=== PATIENT | female | born 1985 | race Caucasian/White ===

== ENCOUNTER 2019-07-27 20:27 | Inpatient (IN) | payer SELFPAY ==
[~2019-07-27] VITALS: Ht 162.5 cm; Wt 82.2 kg
[~2019-07-27 20:27] MED LIST: HYDR1TAB PO; KETO-22 PO; METR500T PO; NF-URO10; PROM25SU10 RC
[2019-07-27] MEDS ORDERED: NS IV 1000 ML 1,000 ML IV SCH ×2 (20:50→21:56)
[2019-07-27] MEDS ORDERED: ONDANSETRON 4 MG/2 ML (SDV) Z0FRAN IVP ONE (21:00)
[2019-07-27 21:10] LABS: BASOPHILS % (AUTO) 0 % (0-10); EOSINOPHILS % (AUTO) 0 % (0-10); HEMATOCRIT 37 % (35-52); HEMOGLOBIN 12.8 G/DL (11.5-16.0); LYMPHOCYTES # (AUTO) 1.3 X 10^3 (1.0-4.0); LYMPHOCYTES % (AUTO) 7 % (12-44); MEAN CORPUSCULAR HEMOGLOBIN 29 PG (25-34); MEAN CORPUSCULAR HGB CONC 35 G/DL (32-36); MEAN CORPUSCULAR VOLUME 82 FL (80-99); MEAN PLATELET VOLUME 9.8 FL (7.4-10.4); MONOCYTES # (AUTO) 1.7 X 10^3 (0.0-1.0); MONOCYTES % (AUTO) 9 % (0-12); NEUTROPHILS # (AUTO) 15.4 X 10^3 (1.8-7.8); NEUTROPHILS % (AUTO) 83 % (42-75); PLATELET COUNT 351 10^3/uL (130-400); RED CELL DISTRIBUTION WIDTH 13.3 % (10.0-14.5); WHITE BLOOD COUNT 18.5 10^3/uL (4.3-11.0)
[2019-07-27 21:17] LABS: CLARITY,URINE CLEAR; COLOR,URINE DARK YELLOW; GLUCOSE, URINE (UA) NEGATIVE (NEGATIVE); KETONES,URINE 3+ (NEGATIVE); LEUKOCYTE ESTERASE ,URINE NEGATIVE (NEGATIVE); NITRITE,URINE NEGATIVE (NEGATIVE); PROTEIN,URINE 2+ (NEGATIVE)
[2019-07-27 21:35] LABS: BILIRUBIN,URINE 2+ (NEGATIVE); WBC,URINE RARE /HPF
[2019-07-27 21:36] LABS: BACTERIA,URINE TRACE /HPF; GRANULAR CASTS,URINE RARE /LPF
--- NOTE | 2019-07-27 21:40 | ED Integumentary General ---
General Chief Complaint: Allergic Reaction Stated Complaint: HIVES Nursing Triage Note: Pt to room #9 via ED w/c by ED staff with c/o rash, fever, nausea, vomiting, diarrhea, joint discomfort, and headache. Pt reports to have been seen @ [facility] on 07/20/19 where she was diagnosed with strep throat. Pt reports symptoms continued and returned to [facility] on 07/24/19 where they adm IM PCN. Pt reports on 07/24/19 "pustule filled blisters" appeared to Lt hand. Pt reports rash in now generalized and has noticed increase in severity throughout this day. A&OX4. History of Present Illness Date Seen by Provider: Jul 27, 2019 Time Seen by Provider: 20:45 Initial Comments 34 year old female presents with intermittent fevers, rash, pharyngitis, my algias/arthralgias, and headache. She had some nausea, vomiting and diarrhea today. She moved here from [place] in late May and reports sore throats intermittently. On 07/20/19 she was Strep + and started on Z-pack at [facility]. There was no improvement and she was re-evaluated on 07/24/19 and given a Penicillin IM injection. Symptoms have progressed over the last 2 days to a rash. On chest, back, neck and UEs they are pustules with a pearly center that are slightly tender but non-pruritic. On left mid back, there appears to be a resolving EM, patient denies a tick bite over the last year. On LEs there are macular-papular rash, that is tender. Abdomen, palmar and plantar surfaces are spared. Her and daughter share a bed with her and do not have a rash or similar symptoms. Patient denies change in laundry products, skin care or diet. No history of UTIs or STIs. No vaginal discharge, painful intercourse or dysuria. No visual changes, neck stiffness, or muscle weakness. Timing/Duration: getting worse Severity: moderate Location: torso, extremities Possible Cause: no cause identified Associated Symptoms: fever; No flushing; headache, hives; No jaundice; malaise; No numbness, No paresthesia, No petechiae; rash, sore throat; No swelling/mass/lumps, No tingling Allergies and Home Medications Allergies Uncoded Allergies: PCN (Allergy, Mild, 10/9/08) Home Medications Hydrocodone Bit/Acetaminophen 1 Each Tablet, 1 EACH PO Q4HR PRN Prescribed by: REHANA PERRIN on 07/20/102020 Ketorolac Tromethamine 10 Mg Tablet, 10 MG PO QID PRN PAIN (GOT IV TORADOL) Prescribed by: REHANA PERRIN on 07/20/102020 Metronidazole 500 Mg Tab, 1 EACH PO TID, (Reported) Promethazine Hcl 25 Mg/Supp.rect Supp.rect, 1 SUPP RC QID Prescribed by: REHANA PERRIN on 07/20/102020 Patient Home Medication List Home Medication List Reviewed: Yes Review of Systems Review of Systems Constitutional: no symptoms reported, see HPI Respiratory: no symptoms reported, see HPI Skin: see HPI, change in color, lesions; No pruritus; rash All Other Systems Reviewed Negative Unless Noted: Yes Past Mrzkkwx-Drgbka-Eeasar Hx Past Med/Social Hx: Reviewed Nursing Past Med/Soc Hx Patient Social History Alcohol Use: Rarely Uses Recreational Drug Use: No Smoking Status: Never a Smoker 2nd Hand Smoke Exposure: No Recent Foreign Travel: No Contact w/Someone Who Travel: No Recent Infectious Disease Expo: No Recent Hopitalizations: Yes Past Medical History Surgeries: No Respiratory: No Cardiac: No Neurological: No Reproductive Disorders: No Sexually Transmitted Disease: No Gastrointestinal: No Musculoskeletal: No Endocrine: No Blood Disorders: No Physical Exam Vital Signs Vital Signs - First Documented 07/27/19 20:35 Temp 37.1 Pulse 127 Resp 18 B/P (MAP) 147/94 (111) Pulse Ox 99 O2 Delivery Room Air Capillary Refill : Less Than 3 Seconds General Appearance: WD/WN, no apparent distress HEENT: TMs normal, pharyngeal erythema, tonsillar exudate, other (tonsils 2+, no rash to pharynx or tongue) Neck: supple, normal inspection, lymphadenopathy (R), lymphadenopathy (L), other (No nuchal rigidity. ) Cardiovascular: normal peripheral pulses, regular rate, rhythm, no murmur Respiratory: chest non-tender, lungs clear Gastrointestinal: normal bowel sounds, non tender, soft Extremities: normal inspection, normal capillary refill, swelling (bilat knees trace swelling, with no erythema or warmth. No effusion to aspirate. Generalized arthralgias to bilat knees. Diffuse maculo-papular rash to bilat LE, not present on plantar surface. ) Neurologic/Psychiatric: no motor/sensory deficits, alert, normal mood/affect, oriented x 3 Skin: warm/dry, pallor, rash Skin Problem Location: neck, upper extremities, lower extremities, other (stomach is spared from rash) Skin Problem Character: macules, papules, vesicular (to UEs, chest, neck and back. ), other (resolving bulls eye rash to left mid back, non tender) Lymphatic: No axilla node tender (R), No axilla node tender (L), No inguinal node tender (R), No inguinal node tender (L) Progress/Results/Core Measures Results/Orders Lab Results Laboratory Tests Test 07/27/19 21:00 07/27/19 21:10 07/27/19 21:15 07/27/19 21:38 Range/Units White Blood Count 18.5 H 4.3-11.0 10^3/uL Red Blood Count 4.49 4.35-5.85 10^6/uL Hemoglobin 12.8 11.5-16.0 G/DL Hematocrit 37 35-52 % Mean Corpuscular Volume 82 80-99 FL Mean Corpuscular Hemoglobin 29 25-34 PG Mean Corpuscular Hemoglobin Concent 35 32-36 G/DL Red Cell Distribution Width 13.3 10.0-14.5 % Platelet Count 351 130-400 10^3/uL Mean Platelet Volume 9.8 7.4-10.4 FL Neutrophils (%) (Auto) 83 H 42-75 % Lymphocytes (%) (Auto) 7 L 12-44 % Monocytes (%) (Auto) 9 0-12 % Eosinophils (%) (Auto) 0 0-10 % Basophils (%) (Auto) 0 0-10 % Neutrophils # (Auto) 15.4 H 1.8-7.8 X 10^3 Lymphocytes # (Auto) 1.3 1.0-4.0 X 10^3 Monocytes # (Auto) 1.7 H 0.0-1.0 X 10^3 Eosinophils # (Auto) 0.0 0.0-0.3 10^3/uL Basophils # (Auto) 0.0 0.0-0.1 10^3/uL Neutrophils % (Manual) 79 % Lymphocytes % (Manual) 5 % Monocytes % (Manual) 7 % Eosinophils % (Manual) 0 % Basophils % (Manual) 0 % Band Neutrophils 9 % Toxic Granulation 1+ Blood Morphology Comment NORMAL Erythrocyte Sedimentation Rate 46 H 0-20 MM/HR Prothrombin Time 14.4 12.2-14.7 SEC INR Comment 1.1 0.8-1.4 Activated Partial Thromboplast Time 39 H 24-35 SEC Sodium Level 136 135-145 MMOL/L Potassium Level 3.5 L 3.6-5.0 MMOL/L Chloride Level 100 98-107 MMOL/L Carbon Dioxide Level 18 L 21-32 MMOL/L Anion Gap 18 H 5-14 MMOL/L Blood Urea Nitrogen 12 7-18 MG/DL Creatinine 0.98 0.60-1.30 MG/DL Estimat Glomerular Filtration Rate > 60 BUN/Creatinine Ratio 12 Glucose Level 96 70-105 MG/DL Lactic Acid Level 0.87 0.50-2.00 MMOL/L Calcium Level 10.5 H 8.5-10.1 MG/DL Corrected Calcium 10.6 H 8.5-10.1 MG/DL Total Bilirubin 0.7 0.1-1.0 MG/DL Aspartate Amino Transf (AST/SGOT) 48 H 5-34 U/L Alanine Aminotransferase (ALT/SGPT) 76 H 0-55 U/L Alkaline Phosphatase 106 40-136 U/L C-Reactive Protein High Sensitivity 23.42 H 0.00-0.50 MG/DL Total Protein 8.5 H 6.4-8.2 GM/DL Albumin 3.9 3.2-4.5 GM/DL Monoscreen NEGATIVE NEGATIVE Urine Color DARK YELLOW Urine Clarity CLEAR Urine pH 6.0 5-9 Urine Specific [place] >=1.030 1.016-1.022 Urine Protein 2+ H NEGATIVE Urine Glucose (UA) NEGATIVE NEGATIVE Urine Ketones 3+ H NEGATIVE Urine Nitrite NEGATIVE NEGATIVE Urine Bilirubin 2+ H NEGATIVE Urine Urobilinogen 1.0 < = 1.0 MG/DL Urine Leukocyte Esterase NEGATIVE NEGATIVE Urine RBC (Auto) 3+ H NEGATIVE Urine RBC 2-5 H /HPF Urine WBC RARE /HPF Urine Squamous Epithelial Cells 10-25 H /HPF Urine Crystals NONE /LPF Urine Bacteria TRACE /HPF Urine Casts PRESENT /LPF Urine Granular Casts RARE /LPF Urine Mucus MODERATE H /LPF Urine Culture Indicated NO Group A Streptococcus Screen NEGATIVE NEGATIVE Micro Results Microbiology 07/27/19 Influenza Types A,B Antigen (JANETTE) - Final, Complete My Orders Orders - ANIKA RODRIGUEZ DONAVAN Cbc With Automated Diff (07/27/19 20:50) Comprehensive Metabolic Panel (07/27/19 20:50) Hs C Reactive Protein (07/27/19 20:50) Ua Culture If Indicated (07/27/19 20:50) Influenza A And B Antigens (07/27/19 20:50) Ed Iv/Invasive Line Start (07/27/19 20:50) Ns Iv 1000 Ml (Sodium Chloride 0.9%) (07/27/19 20:50) Blood Culture (07/27/19 20:50) Lactic Acid Analyzer (07/27/19 20:50) Ondansetron Injection (Zofran Injectio (07/27/19 21:00) Manual Differential (07/27/19 21:00) Urine Bedside (07/27/19 21:21) Monotest (07/27/19 21:21) Rapid Strep A Screen (07/27/19 21:21) Tick Panel With Lyme Eia (07/27/19 21:21) Doxycycline Injection (Vibramycin Inject (07/27/19 21:45) Ed Iv/Invasive Line Start (07/27/19 21:56) Ns Iv 1000 Ml (Sodium Chloride 0.9%) (07/27/19 21:56) Erythrocyte Sedimentation Rate (07/27/19 21:56) Protime With Inr (07/27/19 22:12) Partial Thromboplastin Time (07/27/19 22:12) Medications Given in ED Current Medications Medications Dose Ordered Sig/Chaz Route Start Time Stop Time Status Last Admin Dose Admin Doxycycline Hyclate 100 mg/ Sodium Chloride 100 ml @ 100 mls/hr ONCE ONCE IV 07/27/19 21:45 07/27/19 22:44 DC 07/27/19 21:44 100 MLS/HR Ondansetron HCl 4 mg ONCE ONCE IVP 07/27/19 21:00 07/27/19 21:01 DC 07/27/19 21:17 4 MG Vital Signs/I&O 07/27/19 20:35 Temp 37.1 Pulse 127 Resp 18 B/P (MAP) 147/94 (111) Pulse Ox 99 O2 Delivery Room Air Blood Pressure Mean: 111 POS Progress Progress Note : Time: 20:45 Progress Note Pt seen and evaluated, will obtain labs, NS 1 L IV, Zofran 4 mg IV. 2114 Will give Doxy 100 mg IV. 2144 Nausea improved after Zofran. No change in rash. [address] Sarah, agreed to admit and treat prophylactically until all labs are back. Will continue Doxy 100 mg BID. Tramadol 50 mg orally for pain. [address] Reynolds, recommended STI testing. No other rec ommendations at this time. Patient has mild nausea, will give Phenergan 12.5 mg IV. 2299 patient stable, no change in symptoms. Nausea improved. Awaiting transfer to floor for admission. Departure Impression Primary Impression: Rash Additional Impressions: UTI (urinary tract infection) Qualified Codes: N30.01 - Acute cystitis with hematuria Myalgia Arthralgia Qualified Codes: M25.561 - Pain in right knee; M25.562 - Pain in left knee Dehydration Disposition: ADMITTED INPATIENT Condition: Stable Admissions Decision to Admit Reason: Admit from ER (General) Decision to Admit/Date: Jul 27, 2019 Time/Decision to Admit Time: 22:10 Departure-Patient Inst. Referrals: NO,LOCAL PHYSICIAN (PCP/Family) Primary Care Physician ANIKA RODRIGUEZ Jul 27, 2019 21:40 POS
[2019-07-27 21:44] LABS: ALANINE AMINOTRANSFERASE 76 U/L (0-55); ALBUMIN 3.9 GM/DL (3.2-4.5); ALKALINE PHOSPHATASE 106 U/L (40-136); BILIRUBIN,TOTAL 0.7 MG/DL (0.1-1.0); BUN/CREATININE RATIO 12; CALCIUM 10.5 MG/DL (8.5-10.1); CARBON DIOXIDE 18 MMOL/L (21-32); CHLORIDE 100 MMOL/L (98-107); CREATININE SERUM 0.98 MG/DL (0.60-1.30); GFR ESTIMATED > 60; GLUCOSE 96 MG/DL (70-105); POTASSIUM 3.5 MMOL/L (3.6-5.0); SODIUM 136 MMOL/L (135-145); TOTAL PROTEIN 8.5 GM/DL (6.4-8.2)
[2019-07-27] MEDS ORDERED: DOXYCYCLINE INJECTION 100 MG in NS (IVPB) 100 ML IV ONE (21:45)
[2019-07-27 21:55] LABS: BAND NEUTROPHILS 9 %; BASOPHILS % (MANUAL) 0 %; EOSINOPHILS % (MANUAL) 0 %; LYMPHOCYTES % (MANUAL) 5 %; MONOCYTES % (MANUAL) 7 %; NEUTROPHILS % (MANUAL) 79 %
[2019-07-27 21:56] LABS: RBC MORPH NORMAL; TOXIC GRANULATION/VACUOLAZATIO 1+
[2019-07-27 22:23] LABS: INR 1.1 (0.8-1.4); PROTHROMBIN TIME PATIENT 14.4 SEC (12.2-14.7)
[2019-07-27] MEDS ORDERED: PROMETHAZINE INJ 25 MG/ML (PHENERGAN) AMP IVP ONE (22:45)
[2019-07-28] VITALS (8 sets, daily range): BP systolic 107–134; BP diastolic 66–83
[2019-07-28] MEDS: KETOROLAC 30 MG/ML VIAL IV PRN ×3 (02:29→22:40)
[2019-07-28] MEDS: NS IV 1000 ML 1,000 ML IV SCH ×3 (02:29→18:12)
[2019-07-28 06:27] LABS: BASOPHILS % (AUTO) 0 % (0-10); EOSINOPHILS % (AUTO) 0 % (0-10); HEMATOCRIT 34 % (35-52); HEMOGLOBIN 11.5 G/DL (11.5-16.0); LYMPHOCYTES # (AUTO) 2.1 X 10^3 (1.0-4.0); LYMPHOCYTES % (AUTO) 15 % (12-44); MEAN CORPUSCULAR HEMOGLOBIN 28 PG (25-34); MEAN CORPUSCULAR HGB CONC 34 G/DL (32-36); MEAN CORPUSCULAR VOLUME 84 FL (80-99); MEAN PLATELET VOLUME 9.9 FL (7.4-10.4); MONOCYTES # (AUTO) 1.3 X 10^3 (0.0-1.0); MONOCYTES % (AUTO) 10 % (0-12); NEUTROPHILS # (AUTO) 10.1 X 10^3 (1.8-7.8); NEUTROPHILS % (AUTO) 75 % (42-75); PLATELET COUNT 310 10^3/uL (130-400); RED CELL DISTRIBUTION WIDTH 13.4 % (10.0-14.5); WHITE BLOOD COUNT 13.5 10^3/uL (4.3-11.0)
[2019-07-28 06:54] LABS: ALANINE AMINOTRANSFERASE 61 U/L (0-55); ALBUMIN 3.3 GM/DL (3.2-4.5); ALKALINE PHOSPHATASE 93 U/L (40-136); BILIRUBIN,TOTAL 0.4 MG/DL (0.1-1.0); BUN/CREATININE RATIO 11; CALCIUM 9.3 MG/DL (8.5-10.1); CARBON DIOXIDE 19 MMOL/L (21-32); CHLORIDE 106 MMOL/L (98-107); CREATININE SERUM 0.82 MG/DL (0.60-1.30); GFR ESTIMATED > 60; GLUCOSE 85 MG/DL (70-105); POTASSIUM 3.4 MMOL/L (3.6-5.0); SODIUM 136 MMOL/L (135-145); TOTAL PROTEIN 7.2 GM/DL (6.4-8.2)
[2019-07-28] MEDS: ONDANSETRON 4 MG/2 ML (SDV) Z0FRAN IV PRN ×2 (08:17→18:11)
--- NOTE | 2019-07-28 09:34 | NUR ---
PATIENT STATES SHE DOES NOT TAKE ANY MEDICATION. SHE DOES NOT EVEN LIKE TO TAKE OTC MEDS NEEDED.
[2019-07-28] MEDS: DOXYCYCLINE INJECTION 100 MG in NS (IVPB) 100 ML IV SCH ×2 (09:48→22:40)
[2019-07-28] MEDS: ACETAMINOPHEN 325 MG TABLET PO PRN (11:30)
--- NOTE | 2019-07-28 12:03 | NUR ---
CM DISCHARGE PLANNING: Referral received to visit about patient not being able to afford costs of hospital stay et medications at discharge. This was explored et then visited with patient. Davina reports that she has filled out financial assistance paper work with [facility]. We talked about that process et what she will need to do at discharge to obtain her medications that she dc's with. This would be to go to [facility] et f/u with her patient navigator, complete her financial assistance paperwork, possibly get medications through their repository, et additional medications through their pharmacy. We visited about her hospital stay here. She reports that our financial assistance person has been by et they filled out paperwork to begin that process as well. She needs to bring more information in et her is getting those things together. She denies any additional questions or concerns.
--- NOTE | 2019-07-28 12:16 | History & Physical ---
HPI History of Present Illness: Sore throat started around end of May when she moved back from [place]. Tried OTC meds. Started having increasing fatigue and fever and went to clinic on last Saturday and had positive strep even though she did also have mucous and phlegm so they thought it wouldn't be positive. She has had a lot of stomach problems with amoxicillin so she was given azithromycin, felt better the first day but then started feeling worse again and the day the meds ran out she had fever of up to 102. Went back in to clinic Saturday and was noted to be worse, given shot of penicillin. Had 2 bumps on her wrist when she got the shot, but then over the weekend started getting small bumps all over- upper body has tiny fluid filled bumps and ones on legs like raised bruise type lesions. She went to ER due to red spot about quarter size on her left knee and then at the end of work had spots all over her legs and that one had enlarged as well. The spots on her arms feel tense like they are stretched as far as they can be with fluid, are sensitive. The spots on legs throb when she stands up, especially the large ones on knees and calves. She also reports having lost 6-8 lbs over the week do to not wanting to eat and not wanting to move. She did have a severe headache at the end of last week as well. Headache is mostly better but if she moves it quickly it does hurt. She has a lot of pain in all her joints- neck, elbow, wrists, worst in knees and ankles. Has had nausea and vomiting, especially in the last week. She has no oral lesions. Source: patient Date seen by provider: Jul 28, 2019 Time Seen by Provider: 12:16 Attending Physician Stepan Sarah MD PCP No,Local Physician Consult Date of Admission Jul 27, 2019 at 22:15 Home Medications Home Medications Reviewed patient Home Medication Reconciliation performed by pharmacy medication reconciliations service technician and/or nursing. Patients Allergies have been reviewed. Allergies Uncoded Allergies: PCN (Allergy, Mild, 06/24/08) IEA-Xstnru-Xddlyg Hx Patient Social History Alcohol Use: Rarely Uses Recreational Drug Use: No Smoking Status: Never a Smoker 2nd Hand Smoke Exposure: No Recent Foreign Travel: No Contact w/other who traveled: No Recent Hopitalizations: Yes Recent Infectious Disease Expo: No Past Medical History PMHx: Kidney stones PSurgHx: Cholecystectomy Left ureteroscopies Family Medical History Significant Family History: CAD Under 55 Years Old (mother), Diabetes (grandmother) Review of Systems ([facility]) Constitutional: fever, malaise, weakness, weight loss EENTM: ear pain (left particularly), nose congestion, throat pain Respiratory: cough (improved over the week) Cardiovascular: No palpitations Gastrointestinal: abdominal pain (mild discomfort with antibiotics), diarrhea (earlier this week), nausea, vomiting Genitourinary: hesitancy Musculoskeletal: joint pain Skin: see HPI Psychiatric/Neurological: No Symptoms Reported Reviewed Test Results Reviewed Test Results Lab Laboratory Tests Test 07/27/19 21:00 07/27/19 21:10 07/27/19 21:15 07/27/19 21:38 Range/Units White Blood Count 18.5 H 4.3-11.0 10^3/uL Red Blood Count 4.49 4.35-5.85 10^6/uL Hemoglobin 12.8 11.5-16.0 G/DL Hematocrit 37 35-52 % Mean Corpuscular Volume 82 80-99 FL Mean Corpuscular Hemoglobin 29 25-34 PG Mean Corpuscular Hemoglobin Concent 35 32-36 G/DL Red Cell Distribution Width 13.3 10.0-14.5 % Platelet Count 351 130-400 10^3/uL Mean Platelet Volume 9.8 7.4-10.4 FL Neutrophils (%) (Auto) 83 H 42-75 % Lymphocytes (%) (Auto) 7 L 12-44 % Monocytes (%) (Auto) 9 0-12 % Eosinophils (%) (Auto) 0 0-10 % Basophils (%) (Auto) 0 0-10 % Neutrophils # (Auto) 15.4 H 1.8-7.8 X 10^3 Lymphocytes # (Auto) 1.3 1.0-4.0 X 10^3 Monocytes # (Auto) 1.7 H 0.0-1.0 X 10^3 Eosinophils # (Auto) 0.0 0.0-0.3 10^3/uL Basophils # (Auto) 0.0 0.0-0.1 10^3/uL Neutrophils % (Manual) 79 % Lymphocytes % (Manual) 5 % Monocytes % (Manual) 7 % Eosinophils % (Manual) 0 % Basophils % (Manual) 0 % Band Neutrophils 9 % Toxic Granulation 1+ Blood Morphology Comment NORMAL Erythrocyte Sedimentation Rate 46 H 0-20 MM/HR Prothrombin Time 14.4 12.2-14.7 SEC INR Comment 1.1 0.8-1.4 Activated Partial Thromboplast Time 39 H 24-35 SEC Sodium Level 136 135-145 MMOL/L Potassium Level 3.5 L 3.6-5.0 MMOL/L Chloride Level 100 98-107 MMOL/L Carbon Dioxide Level 18 L 21-32 MMOL/L Anion Gap 18 H 5-14 MMOL/L Blood Urea Nitrogen 12 7-18 MG/DL Creatinine 0.98 0.60-1.30 MG/DL Estimat Glomerular Filtration Rate > 60 BUN/Creatinine Ratio 12 Glucose Level 96 70-105 MG/DL Lactic Acid Level 0.87 0.50-2.00 MMOL/L Calcium Level 10.5 H 8.5-10.1 MG/DL Corrected Calcium 10.6 H 8.5-10.1 MG/DL Total Bilirubin 0.7 0.1-1.0 MG/DL Aspartate Amino Transf (AST/SGOT) 48 H 5-34 U/L Alanine Aminotransferase (ALT/SGPT) 76 H 0-55 U/L Alkaline Phosphatase 106 40-136 U/L C-Reactive Protein High Sensitivity 23.42 H 0.00-0.50 MG/DL Total Protein 8.5 H 6.4-8.2 GM/DL Albumin 3.9 3.2-4.5 GM/DL Monoscreen NEGATIVE NEGATIVE Urine Color DARK YELLOW Urine Clarity CLEAR Urine pH 6.0 5-9 Urine Specific [place] >=1.030 1.016-1.022 Urine Protein 2+ H NEGATIVE Urine Glucose (UA) NEGATIVE NEGATIVE Urine Ketones 3+ H NEGATIVE Urine Nitrite NEGATIVE NEGATIVE Urine Bilirubin 2+ H NEGATIVE Urine Urobilinogen 1.0 < = 1.0 MG/DL Urine Leukocyte Esterase NEGATIVE NEGATIVE Urine RBC (Auto) 3+ H NEGATIVE Urine RBC 2-5 H /HPF Urine WBC RARE /HPF Urine Squamous Epithelial Cells 10-25 H /HPF Urine Crystals NONE /LPF Urine Bacteria TRACE /HPF Urine Casts PRESENT /LPF Urine Granular Casts RARE /LPF Urine Mucus MODERATE H /LPF Urine Culture Indicated NO Group A Streptococcus Screen NEGATIVE NEGATIVE Test 07/28/19 06:10 Range/Units White Blood Count 13.5 H 4.3-11.0 10^3/uL Red Blood Count 4.06 L 4.35-5.85 10^6/uL Hemoglobin 11.5 11.5-16.0 G/DL Hematocrit 34 L 35-52 % Mean Corpuscular Volume 84 80-99 FL Mean Corpuscular Hemoglobin 28 25-34 PG Mean Corpuscular Hemoglobin Concent 34 32-36 G/DL Red Cell Distribution Width 13.4 10.0-14.5 % Platelet Count 310 130-400 10^3/uL Mean Platelet Volume 9.9 7.4-10.4 FL Neutrophils (%) (Auto) 75 42-75 % Lymphocytes (%) (Auto) 15 12-44 % Monocytes (%) (Auto) 10 0-12 % Eosinophils (%) (Auto) 0 0-10 % Basophils (%) (Auto) 0 0-10 % Neutrophils # (Auto) 10.1 H 1.8-7.8 X 10^3 Lymphocytes # (Auto) 2.1 1.0-4.0 X 10^3 Monocytes # (Auto) 1.3 H 0.0-1.0 X 10^3 Eosinophils # (Auto) 0.0 0.0-0.3 10^3/uL Basophils # (Auto) 0.0 0.0-0.1 10^3/uL Sodium Level 136 135-145 MMOL/L Potassium Level 3.4 L 3.6-5.0 MMOL/L Chloride Level 106 98-107 MMOL/L Carbon Dioxide Level 19 L 21-32 MMOL/L Anion Gap 11 5-14 MMOL/L Blood Urea Nitrogen 9 7-18 MG/DL Creatinine 0.82 0.60-1.30 MG/DL Estimat Glomerular Filtration Rate > 60 BUN/Creatinine Ratio 11 Glucose Level 85 70-105 MG/DL Calcium Level 9.3 8.5-10.1 MG/DL Corrected Calcium 9.9 8.5-10.1 MG/DL Total Bilirubin 0.4 0.1-1.0 MG/DL Aspartate Amino Transf (AST/SGOT) 37 H 5-34 U/L Alanine Aminotransferase (ALT/SGPT) 61 H 0-55 U/L Alkaline Phosphatase 93 40-136 U/L Total Protein 7.2 6.4-8.2 GM/DL Albumin 3.3 3.2-4.5 GM/DL Physical Exam-([facility]) Physical Exam Vital Signs VS - Last 72 Hours, by Label POS 07/27/19 07/28/19 07/28/19 07/28/19 20:35 00:05 00:10 00:15 Temp 37.1 36.9 38.2 Pulse 127 112 109 Resp 18 18 20 B/P (MAP) 147/94 (111) 133/85 (111) 107/68 Pulse Ox 99 99 98 99 O2 Delivery Room Air Room Air Room Air Room Air 07/28/19 07/28/19 07/28/19 07/28/19 04:20 08:00 08:01 11:21 Temp 37.7 37.7 38.7 Pulse 101 104 104 Resp 18 20 18 B/P (MAP) 113/66 (82) 128/83 (98) 115/70 (85) Pulse Ox 97 98 98 O2 Delivery Room Air Room Air Room Air Room Air 07/28/19 11:30 Temp 38.7 Capillary Refill : Less Than 3 Seconds General Appearance: WD/WN, no apparent distress Respiratory: lungs clear, normal breath sounds Cardiovascular: no murmur, tachycardia Gastrointestinal: normal bowel sounds, non tender, soft, no organomegaly Extremities: no pedal edema Neurologic/Psychiatric: alert, normal mood/affect Skin: other (diffuse erythematous nodular lesions on legs from 1-5 cm in diameter, few with yellowish pustular area of 2-3 mm on top, erythematous based lesions on arms with larger pustular tops taking up most of the lesions which are about 1-2 cm in diameter) Assessment/Plan Assessment/Plan Admission Status: Observation (1) Rash Status: Acute Assessment & Plan: Uncertain etiology, but suspect possible Sweet Syndrome versus Erythema nodosum. Will check CXR and amylase/lipase to look for sarcoid and panniculitis. Likely will need skin biopsy tomorrow. Tick panel pending, urine GC/chlamydia pending. Strep, mono and flu negative, but she did have posi tive strep last week in clinic and strep could be trigger for Sweet syndrome or EN. Continue doxy for now given improved leukocytosis. (2) Hematuria Status: Acute Assessment & Plan: Without clear evidence of infection, monitor and may need to consider CT abdomen if persistent. (3) Proteinuria Status: Acute Assessment & Plan: Renal function okay, suspect may be related to dehydration versus underlying pathology that is causing rash. (4) Myalgia Status: Acute (5) Arthralgia Status: Acute Qualifiers: Qualified Codes: M25.561 - Pain in right knee; M25.562 - Pain in left knee (6) Fever Status: Acute (7) Leukocytosis Status: Acute (8) Elevated liver enzymes Status: Acute Assessment & Plan: Improving, suspect related to underlying condition, whether infectious or autoimmune. Monitor. (9) DVT prophylaxis Status: Acute Assessment & Plan: Enoxaparin Clinical Quality Measures DVT/VTE Risk/Contraindication: Risk Factor Score Per Nursin RFS Level Per Nursing on Admit: 2=Moderate STEPAN SARAH MD Jul 28, 2019 12:16 POS
--- NOTE | 2019-07-28 14:37 | NUR ---
Initial visit by Phone Specialistglen Arvizu: engaged is rapport building and introduced Spiritual Care services. The pt is Delio.
[2019-07-28] MEDS: ENOXAPARIN 40 MG/0.4 ML (LOVENOX) SYR SC SCH (16:29)
[2019-07-28 16:52] LABS: AMYLASE 52 U/L (25-125); LIPASE 13 U/L (8-78)
--- NOTE | 2019-07-28 18:47 | Diagnostic Imaging Report ---
INDICATION: Fever and chills. TIME OF EXAM: 6:45 PM FINDINGS: The heart size is normal. The pulmonary vascularity is unremarkable. The lungs are clear. No infiltrate, effusion or pneumothorax is detected. IMPRESSION: No acute cardiopulmonary process is detected. Dictated by: Dictated on workstation # [id number]
[2019-07-28] MEDS: diphenhydrAMINE 25 MG TAB (BENADRYL) PO PRN (20:04)
[2019-07-29 03:45] VITALS: BP 108/67
[2019-07-29] MEDS: NS IV 1000 ML 1,000 ML IV SCH ×3 (04:26→21:40)
[2019-07-29] MEDS: diphenhydrAMINE 25 MG TAB (BENADRYL) PO PRN (05:25)
[2019-07-29] MEDS: ACETAMINOPHEN 325 MG TABLET PO PRN ×2 (05:25→16:32)
--- NOTE | 2019-07-29 05:26 | NUR ---
pt requesting Tylenol for headache & Benadryl for itching-prn medications given
[2019-07-29 06:03] LABS: BASOPHILS % (AUTO) 0 % (0-10); EOSINOPHILS % (AUTO) 0 % (0-10); HEMATOCRIT 35 % (35-52); HEMOGLOBIN 11.9 G/DL (11.5-16.0); LYMPHOCYTES # (AUTO) 1.9 X 10^3 (1.0-4.0); LYMPHOCYTES % (AUTO) 15 % (12-44); MEAN CORPUSCULAR HEMOGLOBIN 29 PG (25-34); MEAN CORPUSCULAR HGB CONC 34 G/DL (32-36); MEAN CORPUSCULAR VOLUME 84 FL (80-99); MEAN PLATELET VOLUME 10.9 FL (7.4-10.4); MONOCYTES # (AUTO) 1.1 X 10^3 (0.0-1.0); MONOCYTES % (AUTO) 8 % (0-12); NEUTROPHILS # (AUTO) 9.5 X 10^3 (1.8-7.8); NEUTROPHILS % (AUTO) 76 % (42-75); PLATELET COUNT 269 10^3/uL (130-400); RED CELL DISTRIBUTION WIDTH 13.5 % (10.0-14.5); WHITE BLOOD COUNT 12.5 10^3/uL (4.3-11.0)
[2019-07-29 06:27] LABS: ALANINE AMINOTRANSFERASE 59 U/L (0-55); ALBUMIN 3.2 GM/DL (3.2-4.5); ALKALINE PHOSPHATASE 92 U/L (40-136); BILIRUBIN,TOTAL 0.4 MG/DL (0.1-1.0); BUN/CREATININE RATIO 7; CALCIUM 9.4 MG/DL (8.5-10.1); CARBON DIOXIDE 18 MMOL/L (21-32); CHLORIDE 106 MMOL/L (98-107); CREATININE SERUM 0.73 MG/DL (0.60-1.30); GFR ESTIMATED > 60; GLUCOSE 75 MG/DL (70-105); POTASSIUM 3.6 MMOL/L (3.6-5.0); SODIUM 137 MMOL/L (135-145); TOTAL PROTEIN 7.2 GM/DL (6.4-8.2)
[2019-07-29 08:00] VITALS: BP 119/75
[2019-07-29] MEDS: KETOROLAC 30 MG/ML VIAL IV PRN ×2 (10:39→20:06)
[2019-07-29] MEDS: DOXYCYCLINE INJECTION 100 MG in NS (IVPB) 100 ML IV SCH ×2 (10:39→21:38)
[2019-07-29] MEDS ORDERED: LIDOCAINE/EPI 1%-1:100,000 (XYLOCAINE) 20ML INJ NR (10:45)
[2019-07-29] MEDS ORDERED: SILVER NITRATE APPLICATOR 1 PKT TP NR (10:45)
[2019-07-29] MEDS ORDERED: CHLORASEPTIC SPRAY 177 ML LIQUID MC PRN (11:15)
--- NOTE | 2019-07-29 11:34 | Procedure/Intervention Note ---
Procedure Note Preoperative Date of Service: Jul 29, 2019 Time of Procedure: 11:15 Vital Signs Date Time Temp Pulse Resp B/P (MAP) Pulse Ox O2 Delivery O2 Flow Rate FiO2 07/29/19 08:00 37.0 97 18 119/75 (90) 97 Room Air Indication Skin lesions of uncertain etiology Risk/Time Out Risk and benefits explained to patient or legal guardian, verbal consent given. Time out performed, verified correct patient, correct procedure, correct site, and consent documented. Technique 4 mm punch biopsy Prep/Sedation Prepartation: Alcohol Sedation: Subcutaneous 1% lidocaine with epinephrine, 4 mls Procedure-General Skin of left lower leg was cleansed over sales representative graphic art lesion with alcohol and area infiltrated with 1% lidocaine with epinephrine, 4 mls total. After adequate anesthesia, 4 mm punch biopsy with forceps and tissue scissors used to remove sales representative graphic art section. Hemostasis achieved with pressure and pressure dressing placed. Sample sent for pathology. Estimated Blood Loss Bleeding: Minimal Less than 1 mL: Yes Complications None STEPAN ROBERTO MD Jul 29, 2019 11:34 POS
--- NOTE | 2019-07-29 11:41 | Progress Note ---
Subjective Subjective/Events-last exam Febrile to over 39. Has severe sore throat still and feeling very fatigued. Focused Exam Lactate Level 07/27/19 21:00: Lactic Acid Level 0.87 Objective Exam Last Set of Vital Signs Vital Signs Date Time Temp Pulse Resp B/P (MAP) Pulse Ox O2 Delivery O2 Flow Rate FiO2 07/29/19 08:00 37.0 97 18 119/75 (90) 97 Room Air Capillary Refill : Less Than 3 Seconds I&O Intake and Output 07/29/19 00:00 Intake Total 4915 ml Balance 4915 ml Intake Oral 2715 ml IV Total 2200 ml # Voids 7 Daily Weight Change Yes, 2-13 lbs Yes, 2-13 lbs General: Alert, No Acute Distress Lungs: Clear to Auscultation, Normal Air Movement Heart: Regular Rate, No Murmurs Abdomen: Normal Bowel Sounds, Soft Skin: Other (erythematous nodules over legs and arms and a few small on face some with vesicular top, dry cracking lips) Neuro: Normal Speech Results/Procedures Lab Laboratory Tests 07/29/19 05:24: White Blood Count 12.5H, Red Blood Count 4.15L, Hemoglobin 11.9, Hematocrit 35, Mean Corpuscular Volume 84, Mean Corpuscular Hemoglobin 29, Mean Corpuscular Hemoglobin Concent 34, Red Cell Distribution Width 13.5, Platelet Count 269, Mean Platelet Volume 10.9H, Neutrophils (%) (Auto) 76H, Lymphocytes (%) (Auto) 15, Monocytes (%) (Auto) 8, Eosinophils (%) (Auto) 0, Basophils (%) (Auto) 0, Neutrophils # (Auto) 9.5H, Lymphocytes # (Auto) 1.9, Monocytes # (Auto) 1.1H, Eosinophils # (Auto) 0.0, Basophils # (Auto) 0.0, Sodium Level 137, Potassium Level 3.6, Chloride Level 106, Carbon Dioxide Level 18L, Anion Gap 13, Blood Urea Nitrogen 5L, Creatinine 0.73, Estimat Glomerular Filtration Rate > 60, BUN/Creatinine Ratio 7, Glucose Level 75, Calcium Level 9.4, Corrected Calcium 10.0, Total Bilirubin 0.4, Aspartate Amino Transf (AST/SGOT) 35H, Alanine Aminotransferase (ALT/SGPT) 59H, Alkaline Phosphatase 92, Total Protein 7.2, Albumin 3.2 Microbiology 07/27/19 Blood Culture - Preliminary, Resulted No growth 07/27/19 Throat Culture - Final, Complete No Beta Strep isolated Radiology CXR 07/28: normal Assessment/Plan Assessment/Plan (1) Rash Status: Acute Assessment & Plan: Uncertain etiology, but suspect possible Sweet Syndrome versus Erythema nodosum. Will check CXR and amylase/lipase to look for sarcoid and panniculitis. Likely will need skin biopsy tomorrow. Tick panel pending, urine GC/chlamydia pending. Strep, mono and flu negative, but she did have positive strep last week in clinic and strep could be trigger for Sweet syndrome or EN. Continue doxy for now given improved leukocytosis. 07/29 remains febrile, CXR okay, amylase/lipase normal. Syphilis neg, Lyme neg, Tularemia neg. GC/chlamydia, HIV, Hep panel, RMSF pending. 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 Will trial predisone to eval for benefit and also if response noted, will meet all 4 minor criteria. (2) Hematuria Status: Acute Assessment & Plan: Without clear evidence of infection, monitor and may need to consider CT abdomen if persistent. (3) Proteinuria Status: Acute Assessment & Plan: Renal function okay, suspect may be related to dehydration versus underlying pathology that is causing rash. (4) Myalgia Status: Acute (5) Arthralgia Status: Acute Qualifiers: Qualified Codes: M25.561 - Pain in right knee; M25.562 - Pain in left knee (6) Fever Status: Acute (7) Leukocytosis Status: Acute (8) Elevated liver enzymes Status: Acute Assessment & Plan: Improving, suspect related to underlying condition, whether infectious or autoimmune. Monitor. (9) DVT prophylaxis Status: Acute Assessment & Plan: Enoxaparin Clinical Quality Measures DVT/VTE Risk/Contraindication: Risk Factor Score Per Nursin RFS Level Per Nursing on Admit: 2=Moderate STEPAN ROBERTO MD Jul 29, 2019 11:41 POS
[2019-07-29 12:00] VITALS: BP 120/69
[2019-07-29 15:48] VITALS: BP 136/81
[2019-07-29] MEDS: ENOXAPARIN 40 MG/0.4 ML (LOVENOX) SYR SC SCH (16:32)
[2019-07-29 19:43] VITALS: BP 122/80
[2019-07-29 22:35] LABS: HEPATITIS C ANTIBODY C Non-Reactive (Non-Reactive)
[2019-07-29 23:56] VITALS: BP 125/79
[2019-07-30] MEDS: diphenhydrAMINE 25 MG TAB (BENADRYL) PO PRN ×2 (01:34→21:56)
[2019-07-30] MEDS: ONDANSETRON 4 MG/2 ML (SDV) Z0FRAN IV PRN ×2 (01:38→14:00)
[2019-07-30 03:15] VITALS: BP 126/72
[2019-07-30 06:43] LABS: BASOPHILS % (AUTO) 0 % (0-10); EOSINOPHILS # (AUTO) 0.1 10^3/uL (0.0-0.3); EOSINOPHILS % (AUTO) 0 % (0-10); HEMATOCRIT 32 % (35-52); HEMOGLOBIN 10.9 G/DL (11.5-16.0); LYMPHOCYTES # (AUTO) 1.7 X 10^3 (1.0-4.0); LYMPHOCYTES % (AUTO) 14 % (12-44); MEAN CORPUSCULAR HEMOGLOBIN 29 PG (25-34); MEAN CORPUSCULAR HGB CONC 34 G/DL (32-36); MEAN CORPUSCULAR VOLUME 83 FL (80-99); MEAN PLATELET VOLUME 10.1 FL (7.4-10.4); MONOCYTES # (AUTO) 0.9 X 10^3 (0.0-1.0); MONOCYTES % (AUTO) 7 % (0-12); NEUTROPHILS # (AUTO) 9.7 X 10^3 (1.8-7.8); NEUTROPHILS % (AUTO) 78 % (42-75); PLATELET COUNT 343 10^3/uL (130-400); RED CELL DISTRIBUTION WIDTH 13.8 % (10.0-14.5); WHITE BLOOD COUNT 12.3 10^3/uL (4.3-11.0)
[2019-07-30] MEDS: NS IV 1000 ML 1,000 ML IV SCH ×3 (06:52→15:18)
[2019-07-30] MEDS: KETOROLAC 30 MG/ML VIAL IV PRN ×2 (06:54→14:02)
[2019-07-30 07:04] LABS: ALANINE AMINOTRANSFERASE 42 U/L (0-55); ALBUMIN 2.9 GM/DL (3.2-4.5); ALKALINE PHOSPHATASE 77 U/L (40-136); BILIRUBIN,TOTAL 0.3 MG/DL (0.1-1.0); BUN/CREATININE RATIO 6; CARBON DIOXIDE 18 MMOL/L (21-32); CHLORIDE 106 MMOL/L (98-107); GFR ESTIMATED > 60; GLUCOSE 81 MG/DL (70-105); POTASSIUM 3.3 MMOL/L (3.6-5.0); SODIUM 137 MMOL/L (135-145); TOTAL PROTEIN 6.5 GM/DL (6.4-8.2)
[2019-07-30 07:45] VITALS: BP 129/86
[2019-07-30] MEDS ORDERED: KCL 20 MEQ TAB (K-DUR) PO NR (08:30)
[2019-07-30] MEDS: DOXYCYCLINE INJECTION 100 MG in NS (IVPB) 100 ML IV SCH ×2 (08:41→21:56)
[2019-07-30 11:25] VITALS: BP 115/76
[2019-07-30] MEDS: predniSONE 20 MG TAB PO SCH (11:56)
[2019-07-30] MEDS: ACETAMINOPHEN 325 MG TABLET PO PRN (14:01)
--- NOTE | 2019-07-30 15:08 | NUR ---
"RD ASSESSMENT PMHx: kidney stones PT INTERACTION: Pt was semi-awake and pleasant during nutrition assessment. Pt states current appetite is pretty poor and has been since admission. Note pt avg PO intake of 58% x2d, per chart review. Pt states following a regular diet at home, and currently has some issues with chewing and swallowing food. She attributes this to her recent bout of strep causing difficulty to swallow food. Pt states some recent episodes of nausea and vomiting since admission. Note no episodes of emesis have been reported, per chart review. Pt states no recent issues with c/d at this time. Note last BM was 07/29 and pt not currently on bowel regimen at this time, per chart review. Pt states recent 6-8# wt x1w, d/t poor PO intake. Note unable to determine recent wt hx, per chart review. ABNORMAL NUTRITION-RELATED LAB VALUES: K 3.1 (L); BUN 4 (L); alb 2.9 (L) Est. kcal needs: 6526-3237 kcal (15-20 kcal/kg) Est. Pro needs: 66-82 g Pro (0.8-1.0 g Pro/kg) PES STATEMENT: Inadequate oral intake (NI-2.1) related to nausea | vomiting | loss of appetite as evidenced by pt interview | avg PO intake 58% x2d INTERVENTION: Continue with current diet order of Regular diet. Pt may benefit from nutrition supplementation if PO intake declines. MONITOR/EVALUATE: PO Intake; Plan of Care; Hydration Status; Weight Status; Lab Values Jonathan Sweeney, MS, RD, LD"
[2019-07-30] MEDS: ENOXAPARIN 40 MG/0.4 ML (LOVENOX) SYR SC SCH (15:17)
[2019-07-30 16:13] VITALS: BP 131/71
--- NOTE | 2019-07-30 17:43 | Progress Note ---
Subjective Subjective/Events-last exam Seen at 1100 am. Afebrile last 24 hours, but continues to feel quite poorly, is not taking a lot of oral due to sore throat and is having diffuse pain in her joints. Has new spots on her face that she is worried will scar. Focused Exam Lactate Level 07/27/19 21:00: Lactic Acid Level 0.87 Objective Exam Last Set of Vital Signs Vital Signs Date Time Temp Pulse Resp B/P (MAP) Pulse Ox O2 Delivery O2 Flow Rate FiO2 07/30/19 16:13 36.0 95 16 131/71 (91) 98 Room Air Capillary Refill : Less Than 3 Seconds I&O Intake and Output 07/30/19 00:00 Intake Total 2400 ml Balance 2400 ml Intake Oral 1400 ml IV Total 1000 ml # Voids 10 # Bowel Movements 1 General: Alert, Mild Distress (appears upset) Lungs: Clear to Auscultation, Normal Air Movement Heart: Regular Rate, No Murmurs Abdomen: Normal Bowel Sounds, Soft Skin: Other (diffuse erythematous nodules on legs and arms, some with vesicular type top, few small erythematous papules on cheeks and near lips) Neuro: Normal Speech Psych/Mental Status: Other (mood sad) Results/Procedures Lab Laboratory Tests 07/30/19 06:11: White Blood Count 12.3H, Red Blood Count 3.82L, Hemoglobin 10.9L, Hematocrit 32L , Mean Corpuscular Volume 83, Mean Corpuscular Hemoglobin 29, Mean Corpuscular Hemoglobin Concent 34, Red Cell Distribution Width 13.8, Platelet Count 343, Mean Platelet Volume 10.1, Neutrophils (%) (Auto) 78H, Lymphocytes (%) (Auto) 14, Monocytes (%) (Auto) 7, Eosinophils (%) (Auto) 0, Basophils (%) (Auto) 0, Neutrophils # (Auto) 9.7H, Lymphocytes # (Auto) 1.7, Monocytes # (Auto) 0.9, Eosinophils # (Auto) 0.1, Basophils # (Auto) 0.0, Sodium Level 137, Potassium Level 3.3L, Chloride Level 106, Carbon Dioxide Level 18L, Anion Gap 13, Blood Urea Nitrogen 4L, Creatinine 0.70, Estimat Glomerular Filtration Rate > 60, BUN/Creatinine Ratio 6, Glucose Level 81, Calcium Level 9.0, Corrected Calcium 9.9, Total Bilirubin 0.3, Aspartate Amino Transf (AST/SGOT) 19, Alanine Aminotransferase (ALT/SGPT) 42, Alkaline Phosphatase 77, Total Protein 6.5, Albumin 2.9L Microbiology 07/27/19 Blood Culture - Preliminary, Resulted No growth 07/27/19 Throat Culture - Final, Complete No Beta Strep isolated Radiology CXR 07/28: normal Assessment/Plan Assessment/Plan (1) Rash Status: Acute Assessment & Plan: Uncertain etiology, but suspect possible Sweet Syndrome versus Erythema nodosum. Will check CXR and amylase/lipase to look for sarcoid and panniculitis. Likely will need skin biopsy tomorrow. Tick panel pending, urine GC/chlamydia pending. Strep, mono and flu negative, but she did have positive strep last week in clinic and strep could be trigger for Sweet syndrome or EN. Continue doxy for now given improved leukocytosis. -07/29 remains febrile, CXR okay, amylase/lipase normal. Syphilis neg, Lyme neg, Tularemia neg. GC/chlamydia, HIV, Hep panel, RMSF pending. 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 Will trial predisone to eval for benefit and also if response noted, will meet all 4 minor criteria. 07/30 Afebrile, but still feeling poorly and new spots appearing. Did not receive prednisone yesterday, will start anshul. Biopsy results pending. GC/chlamydia neg, RMSF and erlichia negative, HIV and Hep panel neg. (2) Hematuria Status: Acute Assessment & Plan: Without clear evidence of infection, monitor and may need to consider CT abdomen if persistent. (3) Proteinuria Status: Acute Assessment & Plan: Renal function okay, suspect may be related to dehydration versus underlying pathology that is causing rash. (4) Myalgia Status: Acute (5) Arthralgia Status: Acute Qualifiers: Qualified Codes: M25.561 - Pain in right knee; M25.562 - Pain in left knee (6) Fever Status: Resolved (7) Leukocytosis Status: Acute Qualifiers: Qualified Codes: D72.828 - Other elevated white blood cell count (8) Elevated liver enzymes Status: Acute Assessment & Plan: Improving, suspect related to underlying condition, whether infectious or autoimmune. Monitor. (9) DVT prophylaxis Status: Acute Assessment & Plan: Enoxaparin Clinical Quality Measures DVT/VTE Risk/Contraindication: Risk Factor Score Per Nursin RFS Level Per Nursing on Admit: 2=Moderate STEPAN ROBERTO MD Jul 30, 2019 17:42 POS
[2019-07-30 20:00] VITALS: BP 118/80
[2019-07-31 00:15] VITALS: BP 137/89
[2019-07-31] MEDS: KETOROLAC 30 MG/ML VIAL IV PRN (00:24)
[2019-07-31] MEDS: NS IV 1000 ML 1,000 ML IV SCH (00:24)
[2019-07-31 04:00] VITALS: BP 129/71
[2019-07-31 07:27] LABS: BASOPHILS % (AUTO) 0 % (0-10); EOSINOPHILS % (AUTO) 0 % (0-10); HEMATOCRIT 35 % (35-52); HEMOGLOBIN 11.8 G/DL (11.5-16.0); LYMPHOCYTES # (AUTO) 1.4 X 10^3 (1.0-4.0); LYMPHOCYTES % (AUTO) 11 % (12-44); MEAN CORPUSCULAR HEMOGLOBIN 28 PG (25-34); MEAN CORPUSCULAR HGB CONC 34 G/DL (32-36); MEAN CORPUSCULAR VOLUME 83 FL (80-99); MEAN PLATELET VOLUME 9.8 FL (7.4-10.4); MONOCYTES # (AUTO) 0.8 X 10^3 (0.0-1.0); MONOCYTES % (AUTO) 6 % (0-12); NEUTROPHILS # (AUTO) 10.8 X 10^3 (1.8-7.8); NEUTROPHILS % (AUTO) 83 % (42-75); PLATELET COUNT 401 10^3/uL (130-400); RED CELL DISTRIBUTION WIDTH 13.6 % (10.0-14.5)
[2019-07-31 07:43] LABS: ALANINE AMINOTRANSFERASE 36 U/L (0-55); ALKALINE PHOSPHATASE 78 U/L (40-136); BILIRUBIN,TOTAL 0.2 MG/DL (0.1-1.0); BUN/CREATININE RATIO 13; CARBON DIOXIDE 19 MMOL/L (21-32); CHLORIDE 109 MMOL/L (98-107); CREATININE SERUM 0.69 MG/DL (0.60-1.30); GFR ESTIMATED > 60; GLUCOSE 107 MG/DL (70-105); POTASSIUM 3.5 MMOL/L (3.6-5.0); SODIUM 141 MMOL/L (135-145); TOTAL PROTEIN 6.8 GM/DL (6.4-8.2)
[2019-07-31] MEDS ORDERED: PRD20T PO (08:12)
[2019-07-31] MEDS ORDERED: DIPH25TA27 PO (08:12)
[2019-07-31] MEDS ORDERED: IBUP-1780 PO (08:12)
[2019-07-31 08:14] VITALS: BP 127/75
[2019-07-31] MEDS ORDERED: KCL 20 MEQ TAB (K-DUR) PO NR (08:15)
--- NOTE | 2019-07-31 08:17 | Discharge Summary ---
Discharge Summary Hospital Course Problems/Diagnosis: (1) Rash Status: Acute Assessment & Plan: Uncertain etiology, but suspect possible Sweet Syndrome versus Erythema nodosum. Will check CXR and amylase/lipase to look for sarcoid and panniculitis. Likely will need skin biopsy tomorrow. Tick panel pending, urine GC/chlamydia pending. Strep, mono and flu negative, but she did have positive strep last week in clinic and strep could be trigger for Sweet syndrome or EN. Continue doxy for now given improved leukocytosis. -07/29 remains febrile, CXR okay, amylase/lipase normal. Syphilis neg, Lyme neg, Tularemia neg. GC/chlamydia, HIV, Hep panel, RMSF pending. 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 Will trial predisone to eval for benefit and also if response noted, will meet all 4 minor criteria. 07/30 Afebrile, but still feeling poorly and new spots appearing. Did not receive prednisone yesterday, will start anshul. Biopsy results pending. GC/chlamydia neg, RMSF and erlichia negative, HIV and Hep panel neg. 07/31 arthralgias and swelling and fatigue improved with prednisone yesterday, no improvement in rash yet, but may take one to two weeks. Discharged with one week supply of prednisone 80 mg per day, will need to discuss with PCP continuation for another week versus taper over 2-3 weeks depending on response. Biopsy results pending at d/c. (2) Hematuria Status: Acute Assessment & Plan: Without clear evidence of infection, monitor and may need to consider CT abdomen if persistent. (3) Proteinuria Status: Acute Assessment & Plan: Renal function okay, suspect may be related to dehydration versus underlying pathology that is causing rash. (4) Myalgia Status: Acute (5) Arthralgia Status: Acute Qualifiers: Qualified Codes: M25.561 - Pain in right knee; M25.562 - Pain in left knee (6) Fever Status: Resolved Resolution Date/Time: 07/30/19 @ 17:42 (7) Leukocytosis Status: Acute Qualifiers: Qualified Codes: D72.828 - Other elevated white blood cell count (8) Elevated liver enzymes Status: Resolved Resolution Date/Time: 07/30/19 @ 08:17 Assessment & Plan: Improving, suspect related to underlying condition, whether infectious or autoimmune. Hospital Course Date of Admission: Jul 27, 2019 at 22:15 Admission Diagnosis : See problem list Family Physician/Provider: Brian Mike Physician Date of Discharge: 07/31/19 Discharge Diagnosis: See problem list Hospital Course: See problem list Labs and Pending Lab Test: Laboratory Tests 07/31/19 07:14: White Blood Count 13.0H, Red Blood Count 4.20L, Hemoglobin 11.8, Hematocrit 35, Mean Corpuscular Volume 83, Mean Corpuscular Hemoglobin 28, Mean Corpuscular Hemoglobin Concent 34, Red Cell Distribution Width 13.6, Platelet Count 401H, Mean Platelet Volume 9.8, Neutrophils (%) (Auto) 83H, Lymphocytes (%) (Auto) 11L , Monocytes (%) (Auto) 6, Eosinophils (%) (Auto) 0, Basophils (%) (Auto) 0, Neutrophils # (Auto) 10.8H, Lymphocytes # (Auto) 1.4, Monocytes # (Auto) 0.8, Eosinophils # (Auto) 0.0, Basophils # (Auto) 0.0, Sodium Level 141, Potassium Level 3.5L, Chloride Level 109H, Carbon Dioxide Level 19L, Anion Gap 13, Blood Urea Nitrogen 9, Creatinine 0.69, Estimat Glomerular Filtration Rate > 60, BUN/Creatinine Ratio 13, Glucose Level 107H, Calcium Level 10.0, Corrected Calcium 10.8H, Total Bilirubin 0.2, Aspartate Amino Transf (AST/SGOT) 17, Alanine Aminotransferase (ALT/SGPT) 36, Alkaline Phosphatase 78, Total Protein 6.8, Albumin 3.0L Microbiology 07/27/19 Blood Culture - Preliminary, Resulted No growth 07/27/19 Throat Culture - Final, Complete No Beta Strep isolated Home Meds Active Ibuprofen 800 Mg Tablet 800 Mg PO Q8H PRN Prednisone 20 Mg Tab 80 Mg PO DAILY@0800 7 Days Banophen (Diphenhydramine HCl) 25 Mg Tablet 25 Mg PO Q4H PRN Assessment/Pt DC Instructions Follow up with Neva Guerra on 08/04 at 1:40 pm. Discharge Diet: No Restrictions Activity as Tolerated: Yes Discharge Physical Examination Allergies: Uncoded Allergies: PCN (Allergy, Mild, 06/24/08) General Appearance: No Apparent Distress Respiratory: Lungs Clear, Normal Breath Sounds Cardiovascular: Regular Rate, Rhythm, No Murmur Gastrointestinal: Normal Bowel Sounds, Non Tender, Soft Extremity: No Pedal Edema Skin: Rash (erythematous nodules on legs, erythematous papules and nodules on arms with vesicular top, few ulcerated lesions) Neurologic/Psychiatric: Alert, Depressed Affect Copy Copies To 1: Neva Guerra APRN Discharge Summary Date of Admission Jul 27, 2019 at 22:15 Date of Discharge Clinical Quality Measures DVT/VTE Risk/Contraindication: Risk Factor Score Per Nursin RFS Level Per Nursing on Admit: 2=Moderate STEPAN ROBERTO MD Jul 31, 2019 08:17 POS
[2019-07-31] MEDS: predniSONE 20 MG TAB PO SCH (08:33)
[2019-07-31] MEDS ORDERED: HYDROCORTISONE 1% CREAM 30 GM TUBE TOP SCH (09:00)
--- NOTE | 2019-08-04 13:55 | Physician Query Clarification ---
PQ-Further Specificity Admission/Discharge Admission Date: Jul 27, 2019 at 22:15 Discharge Date: Jul 31, 2019 at 10:30 The medical record reflects the following clinical scenario: History/Risk Factors: No previous hx/risk factors Clinical Findings: fever 102, small bumps all over body, joint pain all joints, malaise, weakness, weight loss, nausea/vomiting, sore throat, diarrhea, headache, path shows lymphocytic interface dermatitis Treatment: punch biopsy legs, IV Doxycycline Question: Can you further specify diagnosis/condition for the patients symptoms per the clinical indicators above? Please document a response in the Progress Notes or Discharge Summary. 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 Other, with explanation of the clinical findings. 5. Clinically undetermined, no explanation for the clinical findings. PHYSICIAN RESPONSE Can you specify per above: 2 Explanation/Clinical Findings Suspect Sweet Syndrome but not entirely clear Please remember a lack of response to the above will prompt a phone page by [facility]/Coding staff. In responding to this query, please exercise your independent professional judgment. The purpose of this communication is to more accurately reflect the complexity of your patients condition. The fact that a question is asked does not imply that any particular answer is desired or expected. Thank you for your timely response to this clarification. Requestors name: [employer]ht THIS PHYSICIAN QUERY FORM IS A PERMANENT PART OF THE MEDICAL RECORD KATH MACARIO Aug 04, 2019 13:55 STEPAN PECK MD Aug 06, 2019 13:50 POS
== END 2019-07-31 10:30 | disposition home or self-care (01) | DRG 607 ==
LOC: EDUNIT# 20:27 → ER 20:29 → OBSVTOIN 22:15 → 4TH 22:15 → UNDOADMOB 22:15 → INTOOBSV 22:15 → UNDODISIN 07-31 10:30
PROVIDERS: ADMIT Family Medicine; ATTEND Family Medicine
PROC: 0HBLXZX Excision of Left Lower Leg Skin, External Approach, Diagnostic (ICD-10-PCS; principal; 2019-07-29)
DX: L98.2 Febrile neutrophilic dermatosis [Sweet] (principal); E86.0 Dehydration; J02.9 Acute pharyngitis, unspecified; R11.2 Nausea with vomiting, unspecified; R19.7 Diarrhea, unspecified; R51 Headache; R31.9 Hematuria, unspecified; R80.8 Other proteinuria; M25.561 Pain in right knee; M25.562 Pain in left knee; M25.571 Pain in right ankle and joints of right foot; M25.572 Pain in left ankle and joints of left foot; M25.531 Pain in right wrist; M25.532 Pain in left wrist; M25.521 Pain in right elbow; M25.522 Pain in left elbow; M54.2 Cervicalgia; R39.11 Hesitancy of micturition; M79.10 Myalgia, unspecified site; R74.8 Abnormal levels of other serum enzymes; R53.1 Weakness; R63.4 Abnormal weight loss
CPT/HCPCS: 36415; 71046; 80053; 80074; 81000; 82150; 83605; 83690; 84703; 85007; 85025; 85027; 85610; 85652; 85730; 86141; 86308; 86618; 86666; 86668; 86703; 86757; 86780; 87040; 87430; 87491; 87591; 87804; 88305; 88312; 88313; 88346; 88350; 96361; 96365; 96375

== ENCOUNTER 2021-02-20 09:21 | Inpatient (IN) | payer MEDICAID ==
[2021-02-20] VITALS (11 sets, daily range): BP systolic 98–124; BP diastolic 50–76
[~2021-02-20] VITALS: Ht 165.1 cm; Wt 75.0 kg
[~2021-02-20 09:21] MED LIST changes: +DIPH25TA27 PO; +IBUP-1780 PO; +PRD20T PO
[2021-02-20] MEDS ORDERED: LACTATED RINGERS 1,000 ML IV PRN (10:15)
--- NOTE | 2021-02-20 10:42 | Diagnostic Imaging Report ---
PROCEDURE: CT neck soft tissue without contrast. TECHNIQUE: Multiple contiguous axial images were obtained through the neck without the use of intravenous contrast. Auto Exposure Controls were utilized during the CT exam to meet ALARA standards for radiation dose reduction. INDICATION: Swelling down right side of face and neck. There are no prior studies available for comparison. FINDINGS: There is edema/inflammation of the subcutaneous fat along the right side of the face extending from the right maxillary antrum caudally to the lower cervical region. In addition, there are several droplets of gas along the anterior margin of the right masseter muscle. The right masseter muscle also appears to be enlarged compared to the left. There is also some thickening of the aryepiglottic fold on the right. There is no drainable abscess visualized, however. There is no sign of bony destruction of the mandible. It appears that both 3rd upper molars have been removed. There is a small droplet of gas in the superior aspect of the molar extraction on the right. A few droplets of gas are also seen in the molar extraction site on the left. There is mild mucosal thickening of the right maxillary antrum. The sinuses are otherwise generally clear. The orbits are symmetrical and within normal limits. The intracranial contents where visualized show no sign of an acute abnormality. The lung apices are clear. IMPRESSION: 1. There is diffuse edema/inflammation along the right side of face and the right neck. There is also gas in the soft tissues along the anterior margin of the enlarged right masseter muscle. These findings do suggest an acute inflammatory/infectious process. There is no drainable abscess identified, however. 2. Both 3rd upper molars have been extracted. There is a small amount of gas in each extraction site. 3 These results were discussed with Dr. Ceferino Shrestha. Dictated by: Dictated on workstation # [id number]
[2021-02-20] MEDS ORDERED: SUCCINYLCHOLINE INJ 100 MG/5 ML SYR/VIAL ONE (11:03)
[2021-02-20] MEDS ORDERED: ONDANSETRON 4 MG/2 ML (SDV) Z0FRAN ONE (11:03)
[2021-02-20] MEDS ORDERED: LIDOCAINE PF 2% 5 ML (XYLOCAINE) VIAL ONE (11:03)
[2021-02-20] MEDS ORDERED: fentaNYL INJ 100 MCG/2 ML AMP ONE (11:03)
[2021-02-20] MEDS ORDERED: proPOfol 200 MG/20 ML (DIPRIVAN) VIAL IV ONE (11:03)
[2021-02-20] MEDS ORDERED: MIDAZOLAM 2 MG/2 ML (VERSED) VIAL ONE (11:04)
[2021-02-20] MEDS ORDERED: SEVOFLURANE (ULTANE) 15 ML INHAL SOLN ONE ×2 (11:05→12:16)
[2021-02-20] MEDS: LACTATED RINGERS 1,000 ML IV SCH ×2 (11:14→21:58)
[2021-02-20] MEDS: cefTRIAXone 1,000 MG in WATER (STERILE) FOR INJECTION 10 ML IV SCH (11:15)
[2021-02-20] MEDS: HYDROmorphone 2 MG/ML VIAL (DILAUDID) IV PRN ×2 (11:16→14:35)
[2021-02-20] MEDS: ONDANSETRON 4 MG/2 ML (SDV) Z0FRAN IVP PRN (11:31)
[2021-02-20] MEDS ORDERED: LIDOCAINE/EPI 2% 1:100,00 (XYLOCAINE) 20 ML VIAL ONE (11:48)
[2021-02-20] MEDS ORDERED: NEO/POLY/BAC (NEOSPORIN) OINT 15 GM TUBE ONE (11:48)
[2021-02-20] MEDS ORDERED: ROPIVACAINE 5MG/ML 30ML VIAL ONE (11:48)
--- NOTE | 2021-02-20 12:36 | Progress Note-Pre Operative ---
Pre-Operative Progress Note H&P Reviewed The H&P was reviewed, patient examined and no changes noted. Date Seen by Provider: Feb 20, 2021 Time Seen by Provider: 11:30 Date H&P Reviewed: Feb 20, 2021 Time H&P Reviewed: 11:40 Pre-Operative Diagnosis: Right buccal space abcess , pericornitis associated with tooth 32 [place] DDS Feb 20, 2021 12:36
--- NOTE | 2021-02-20 13:32 | Anesthesia-General Post-Op ---
General Patient Condition Mental Status/LOC: Same as Preop Cardiovascular: Satisfactory Nausea/Vomiting: Absent Respiratory: Satisfactory Pain: Controlled Complications: Absent Post Op Complications Complications None Follow Up Care/Instructions Patient Instructions None needed. Anesthesia/Patient Condition Patient Condition Patient is doing well, no complaints, stable vital signs, no apparent adverse anesthesia problems. JACQUELINE PERKINS DO Feb 20, 2021 13:32
[2021-02-20] MEDS ORDERED: ceFAZolin INJECTION 1,000 MG in WATER (STERILE) FOR INJECTION 10 ML IV SCH (14:00)
[2021-02-20] MEDS ORDERED: IBUP-2473 PO (15:18)
[2021-02-20] MEDS ORDERED: ACET325T38 PO (15:18)
[2021-02-20] MEDS: HYDROcodone/APAP 7.5MG-325 MG/15 ML (LORTAB) UDC PO PRN (19:40)
[2021-02-21 03:35] VITALS: BP 133/78
[2021-02-21] MEDS: HYDROcodone/APAP 7.5MG-325 MG/15 ML (LORTAB) UDC PO PRN ×3 (03:43→17:16)
[2021-02-21] MEDS: LACTATED RINGERS 1,000 ML IV SCH ×3 (06:18→17:50)
[2021-02-21] MEDS: ONDANSETRON 4 MG/2 ML (SDV) Z0FRAN IVP PRN ×2 (06:23→20:06)
[2021-02-21 08:00] VITALS: BP 106/61
[2021-02-21] MEDS: HYDROmorphone 2 MG/ML VIAL (DILAUDID) IV PRN ×2 (10:22→20:41)
[2021-02-21] MEDS: cefTRIAXone 1,000 MG in WATER (STERILE) FOR INJECTION 10 ML IV SCH (11:13)
[2021-02-21 11:44] VITALS: BP 123/100
[2021-02-21 16:18] VITALS: BP 135/81
[2021-02-21 20:06] VITALS: BP 142/80
[2021-02-21] MEDS: FAMOTIDINE 20MG/2ML IV (PEPCID) IVP SCH (20:41)
[2021-02-21 23:58] VITALS: BP 132/77
[2021-02-22] MEDS: HYDROcodone/APAP 7.5MG-325 MG/15 ML (LORTAB) UDC PO PRN ×3 (00:50→13:52)
[2021-02-22 04:36] VITALS: BP 113/83
[2021-02-22 07:20] VITALS: BP 126/69
[2021-02-22] MEDS: FAMOTIDINE 20MG/2ML IV (PEPCID) IVP SCH (08:32)
[2021-02-22] MEDS: cefTRIAXone 1,000 MG in WATER (STERILE) FOR INJECTION 10 ML IV SCH (10:40)
[2021-02-22 11:35] VITALS: BP 118/59
[2021-02-22] MEDS: metroNIDAZOLE 500MG/100ML IVPB 200 ML IV NR ×2 (15:05→16:01)
[2021-02-22 15:33] VITALS: BP 105/63
[2021-02-22 18:00] VITALS: BP 105/63
--- NOTE | 2021-02-23 21:40 | OPERATIVE REPORT ---
DATE OF SERVICE: 02/20/2021 SERVICE: solar sales ambassador. SURGEON: Ceferino Root DDS REAL ESTATE SERVICES ADMINISTRATOR: Scrub nurse, Angelica. ANESTHESIA: General endotracheal. COMPLICATIONS: There were no complications. BLOOD LOSS: Minimal. FLUIDS: 550 mL of crystalloid. PREOPERATIVE DIAGNOSES: 1. Right buccal space abscess subsequent to pericoronitis. 2. Inflammation of the right lateral pharyngeal glottic area. POSTOPERATIVE DIAGNOSES: 1. Right buccal space abscess subsequent to pericoronitis. 2. Inflammation of the right lateral pharyngeal glottic area. PROCEDURE: Incision and drainage extraorally of right buccal space abscess as well as intraorally right manager meeting space drainage and removal of tooth #32. HISTORY OF PRESENT ILLNESS AND INDICATIONS FOR PROCEDURE: The patient is a 35-year-old essentially healthy white female who presents to my office with grossly carious and nonfunctional teeth numbers 1, 16, and 32. She also has symptoms of pericoronitis associated with tooth #32. After speaking with her, she was scheduled for surgery for removal of tooth numbers 1, 16, and 19. This was completed the previous of the week in my office. She called me on 02/19/2021, said that she had increased swelling, pain and erythema in the area of her right cheek. I have met her down at the office at 10:30 in the morning and evaluated her. She did indeed have increased swelling. There did not appear to be associated with tooth #1 on that side. It was firm to the touch, tender to palpation. She stated it increased in size since Saturday and it was painful. She has trismus, she could only open 5 mm with an interincisal opening, which was measured. We then evaluated her on Saturday morning. It had increased in size with a greater area of erythema as well as increasing pain and tenderness down on to the extent of her right lateral neck down to her clavicle. She has also had erythema and tenderness to the posterior triangle of the neck. Again, she could only open to 5 mm. She had increased swelling and edema in the area of tooth #32. We attempted to drain this in the office and were unsuccessful. I was able to get approximately 1 mL of purulent drainage facially after we had given her local anesthesia and intravenous sedation. After this, I spoke with her family and advised her she would need to have be admitted to the hospital for intravenous antibiotics and then take her to the emergency room as soon as possible to complete drainage of the right buccal space as well as to removal of tooth #32 and also incise and drain this region of the manager meeting space intraorally. At this point, I advised the patient was diagnosed with the patient's family. This was the appropriate time for questions and they were answered and then she was taken to the operating room as soon as possible. DESCRIPTION OF PROCEDURE: The patient was taken to the operating room and placed on the operatory table. The appropriate monitors placed and anesthesia was induced via orotracheal intubation without difficulty. Once this was secured, the surgeon left the room, scrubbed, returned, donned sterile gowns and gloves and prepped and draped the patient in the usual standard sterile fashion. After this, we deposited local anesthesia in a right mandibular block as well as in the subcuticular region over the right buccal space. We had had percutaneous access previously. This was increased at this point, I was able to make an incision along the lateral oblique and superior oblique line of the mandible. On the external oblique ridge, I was then able to dissect into the abscess cavity, which was posterior and directly lateral to the buccal space. Tooth #32 was removed in its entirety. After I luxated with a 301 elevator and removed them with a lower [place] forceps. At this point, we had some minor drainage, but not significant extraorally. I was able to dissect bluntly into the cavity, which was not a traditional abscess cavity per se, but it was cellulitic. I was able to gain purulent drainage. This was cultured and sent for Gram stain, anaerobic and aerobic cultures. I then irrigated extensively with saline two-third saline and one-third hydrogen peroxide both intraorally and then dissected along the anterior border of the parotid through the cheek and was able to connect the 2 abscess cavities and this was also irrigated intraorally and extraorally at that time extensively with approximately 500 mL of saline. After this, I placed a Kari drain extraorally and then this was retained with a 3-0 chromic gut suture. Extraorally, we then again copiously irrigated with normal saline with drain in place. After this, we copiously irrigated the intraoral extraction socket as well as the intraoral abscess cavity. After this, we had placed a throat pack prior to starting the procedure. This throat pack was removed. She then had a gauze or a drain dressing placed. She was then extubated in the operating room after breathing spontaneously and then transported to the recovery room where she was assessed to have stable vital signs, breathing spontaneously with a pulse ox of 99%. Job ID: [id number] DocumentID: [id number] Dictated Date: 02/23/2021 15:47:39 Technical Specialist Cytogenetics Date: 02/23/2021 21:39:31 Dictated By: CEFERINO ROOT DDS
== END 2021-02-22 18:00 | disposition home or self-care (01) | DRG 138 ==
LOC: 4TH 09:45
PROVIDERS: ADMIT Specialist; ATTEND Specialist
PROC: 0CDXXZ0 Extraction of Lower Tooth, Single, External Approach (ICD-10-PCS; 2021-02-20)
PROC: 0C9XXZ0 Drainage of Lower Tooth, External Approach, Single (ICD-10-PCS; 2021-02-20)
PROC: 0C9400Z Drainage of Buccal Mucosa with Drainage Device, Open Approach (ICD-10-PCS; principal; 2021-02-20 11:55)
DX: K12.2 Cellulitis and abscess of mouth (principal); K05.319 Chronic periodontitis, localized, unspecified severity; K02.9 Dental caries, unspecified; Z20.822 Contact with and (suspected) exposure to COVID-19
CPT/HCPCS: 70490; 84703; 87070; 87075; 87076; 87077; 87081; 87181; 87184; 87185; 87205; 87635